=== PATIENT | male | born 1980 | race Caucasian/White ===

== ENCOUNTER 2016-11-08 18:55 | Emergency (ER) | payer OTHER ==
--- NOTE | 2016-11-08 19:45 | ED CLINICAL REPORT ---
Clinical Report - Physicians/Mid Levels [facility] [address] [place] [address] 11/08/2016 18:56 Patient: ANNY GORDON Time Seen: 19:07; initial patient contact, initial documentation, patient care assumed. Arrived- By private vehicle. Historian- patient. HISTORY OF PRESENT ILLNESS Chief Complaint: Injury to the left hand. The injury happened just prior to arrival. The patient sustained a laceration from a knife. Occurred at home. Patient is experiencing mild pain. Patient denies injury to the head. No other injury. REVIEW OF SYSTEMS The patient sustained a laceration. No swelling, tingling, numbness, weakness or foreign body. All systems otherwise negative, except as recorded above. PAST HISTORY See nurses notes. PROBLEMS: no known problems. ADDITIONAL SURGERIES: Appendectomy. --19:06 Page-Elva Ochoa R.N. The patient's dominant hand is the right. Tetanus immunization status is unknown. SOCIAL HISTORY Light tobacco smoker. Regular alcohol use; consumes two beers a day. Under the influence in [place]. No drug use. No recent travel. Is a local resident. He lives with spouse. ADDITIONAL NOTES The nursing notes have been reviewed with agreement regarding the chief complaint, HPI, ROS, PMH and patient medications and allergies. PHYSICAL EXAM Vital Signs: 11/08/2016 19:04 BP: 127/77. HR: 74. RR: 15. O2 saturation: 100%. Temp: 98.6 F. Pain level now: 10. Have been reviewed as normal and appear to be correct. Appearance: Alert. Oriented X3. No acute distress. Head: Head atraumatic. Eyes: Pupils equal, round and reactive to light. Eyes normal inspection. Respiratory: No respiratory distress. Skin: Skin warm and dry. Skin intact. Extremities: Hand injury present. Left hand: mild tenderness and subcutaneous 1.5 cm laceration. SEE LACERATION PROCEDURE NOTE #1. Neurovascular intact distally. (localized to webspace between digits 1&2). No erythema, swelling, abrasion, ecchymosis or puncture wound. No foreign body or deformity. No wrist injury. Hand and wrist exam otherwise negative. Extremities otherwise negative. Neuro, Vascular and Tendons: Vascular status intact. Sensation intact. Motor intact. Tendon function intact. Neuro: Oriented X 3. No motor deficit. No sensory deficit. Note: isolated injury to hand. PROGRESS AND PROCEDURES Laceration Repair: Location: left hand. Length: 1.5cm. Complexity: simple (local anesthesia used and sutured). Wound depth/shape- curved, irregular and flap-like and involving fascia. Wound is clean. No contamination, foreign body or contused tissue present. No tissue loss. Distal neuro/vascular/tendon status normal. Tendon not examined. No tendon deficit or laceration or tendon injury. Local anesthesia provided using 1% lidocaine (2 mL). Prepped with Betadine. Wound explored, cleansed, irrigated and examined to the base in bloodless field with normal saline. Wound not debrided. No foreign material removed. Closure of skin: 4-0 nylon (3 sutures). Skin adhesive used. Post-procedure: he is stable and there are no complications. Bleeding is controlled and neuro-vascular status is intact distal to the wound. Dressing applied. (per nursing staff, see other notes). Tetanus immunization given. Estimated blood loss: 3 mL. Patient and spouse counseled in person regarding the patient's stable condition and diagnosis. Differential Diagnosis: Other possible considerations: hand lac, fb, tendon injury. Above considerations are based on history and physical exam. Differential diagnosis was discussed with patient and patient's spouse. Disposition: Discharged home in good and improved condition (19:45). Condition: good and stable. CLINICAL IMPRESSION Single deep laceration to the left hand.Treatment of laceration not delayed. No infection, foreign body present or left fingernail injury. INSTRUCTIONS Protect wound and keep wound area clean. Soak in warm soapy water twice daily. Apply bacitracin twice daily. Sutures should be removed in ten days. Warnings: TETANUS: You were given a tetanus shot during your visit. Make a note for future reference. GENERAL WARNINGS: Return or contact your physician immediately if your condition worsens or changes unexpectedly, if not improving as expected, or if other problems arise. Specifically return if problem worsens. Follow-up: Follow up with your doctor in about three days as needed and for wound check. Call for an appointment. Summary of care provided to patient and family. Understanding of the discharge instructions verbalized by patient and family. (Electronically signed by Jessica Gill A.R.N.P. 11/08/2016 20:54)
--- NOTE | 2016-11-08 19:45 | ED NURSING NOTES ---
Clinical Report - Nurses [facility] [address] [place] [address] [place] [address] 11/08/2016 18:56 Patient: ANNY GORDON TRIAGE Triage time 19:Nov 08 2016. Acuity: LEVEL 4. Chief Complaint: INJURY TO LEFT HAND. INJURY TO THE RIGHT HAND. Alert. No acute distress. SEPSIS SCREEN: Sepsis Screen. Negative (no infection suspected/documented). ARIELLA COMA SCORE: [place] Coma Scale: 15- eyes open spontaneously (4); best verbal response- oriented x 4 (5); best motor response- obeys commands (6). --19:08 Elva Lux R.N. 19:04 11/08/16. BP: 127/77. HR: 74. RR: 15. O2 saturation: 100%. Temp: 98.6 F. Pain level now: 05/30. --19:08 Elva Lux R.N. Weight: 101.6 kg stated. Height/Length: 73 inches Per Patient. BMI: 29.6. --19:05 Elva Lux R.N. Medications None. --19:05 Elva Lux R.N. Medication/allergy information source: the patient. --19:08 Elva Lux R.N. Allergies None. --19:05 Elva Lux R.N. History Arrived by private vehicle. Historian: patient and family. Accompanied by family. This occurred just prior to arrival. He sustained a laceration from a knife (pt slicing an avacodo, knife slipped and now with lac to left hand, bleeding controlled). No neck pain, weakness or numbness. Treatment HIGH LIFT MULE OPERATOR: None. PAST MEDICAL HX: Tetanus status: unknown. Immunizations: status is unknown. SOCIAL HX: Light tobacco smoker- less than 1/2 a pack per day. Alcohol use; consumes two beers a day. Patient smells of ETOH in the emergency department. No drug use. No infectious disease exposure. ABUSE ASSESSMENT: No report of abuse. SELF HARM ASSESSMENT: A self harm assessment was performed. The patient answered "no" to the question "Do you have thoughts of harming or killing yourself?". FALL RISK ASSESSMENT: Fall risk assessment completed. No fall risk identified. NUTRITIONAL RISK ASSESSMENT: The nutritional risk assessment revealed no deficiencies. FUNCTIONAL ASSESSMENT: Functional assessment: no impairments noted. LEARNING NEEDS ASSESSMENT: The learning needs assessment revealed no barriers. SKIN INTEGRITY ASSESSMENT: Skin integrity risk assessment completed. No skin integrity risk identified. --19:08 Elva Lux R.N. PROBLEMS: no known problems. ADDITIONAL SURGERIES: Appendectomy. --19:06 Elva Lux R.N. Interventions ID band on patient. To treatment room. --19:08 Elva Lux R.N. PHYSICAL ASSESSMENT Ambulatory to room. Patient gowned. GENERAL / NEURO / PSYCH: Oriented X 4. Alert. Appears in no acute distress. EXTREMITIES: Capillary refill is less than 2 seconds in the extremities. Extremity pulses are within normal limits. Extremities exhibit normal ROM. Neuro-vascular status intact to the extremity. Right hand: (lac to base of thumb). SKIN: Skin is warm and dry. --19:09 Elva Lux R.N. NURSING PROGRESS NOTES Reassurance given. Patient identifiers checked. Call light placed in reach. Side rails up. Bed placed in lowest position. Brakes of bed on. --19:09 Elva Lux R.N. ( JEWELRY MODEL MAKER at bedside). --19:10 Elva Lux R.N. 19:16 11/08/2016 TDAP IM 0.5 mL given. (Lot#: [id number], expiration date: 09/28/2018, Rice Drier: sanofi pasteur). Given in the right deltoid. Allergies verified and confirmed 5 rights. Vaccine information statement provided to the patient. --19:26 Elva Lux R.N. WOUND REPAIR: Wound repair performed by JEWELRY MODEL MAKER. The wound is located on the left hand (left hand/palm). The wound is flap-like. Preparation: suture tray set-up. Procedure: wound repaired with sutures. Post-procedure: he was stable, no complications, bleeding controlled, neuro-vascular status intact distal to wound, dressing applied and wound care instructions given. Applied dressing consisting of telfa pad, following the application of antibiotic ointment. Secured with kerlix. --19:36 Elva Lux R.N. DISPOSITION / DISCHARGE No learning barriers present. Discharge instructions provided and reviewed with the patient. Patient verbalized understanding. Written instructions provided in Urdu. The patient was discharged by the nurse practitioner. He was discharged home and accompanied by spouse. He left the Emergency Department ambulatory and via private vehicle. Spouse driving. ( pt instructed on s/sx of infection , wound upon dispo c/d/i, f/u provided). --20:00 Elva Lux R.N. 19:57 11/08/16. BP: 121/68. HR: 69. RR: 15. O2 saturation: 100%. Temp: deferred. Pain level now: 0/10. --20:00 Elva Lux R.N. Condition at departure: improved. --20:00 Elva Lux R.N. Locked/Released at 11/08/2016 20:52 by Elva Lux R.N.
--- NOTE | 2016-11-08 19:45 | ED ORDER SUMMARY ---
..... Patient: ANNY GORDON OrderSheet [facility] VisitID: [id number] [address] [place] [address] 36y, M Registration Date/Time: 11/08/2016 ORDER SHEET Weight: 101.6 kg (stated) Allergies: None GENERAL ORDERS: Suture Set-up: (19:11 11/08/2016 Linda Collins.NAndie verbal order read back to HBivens A.R.N.P.) (19:20 CRYSTALeiler ER Tech1) Dress Wounds (19:12 11/08/2016 Linda Collins.NAndie verbal order read back to HBivens A.R.N.P.) (19:36 rAmando R.N.) MEDICATION ORDERS: Tdap IM 0.5 mL (NOW) (19:11 11/08/2016 Linda Collins.NAndie verbal order read back to HBivens A.R.N.P.) (19:26 Armando R.N.) IV FLUIDS: ORDER SHEET NOTES: [Electronically signed by Elva Lux R.N. (20:52 11/08/2016)] [Electronically signed by Jessica GillR.N.PAndie (20:54 11/08/2016)] [Electronically locked/signed by Elva Lux R.N. (20:52 11/08/2016)]
--- NOTE | 2016-11-08 19:45 | ED NURSING NOTES ---
Clinical Report - Nurses [facility] [address] [address] 11/08/2016 18:56 Patient: ANNY GORDON TRIAGE Triage time 19:Nov 08 2016. Acuity: LEVEL 4. Chief Complaint: INJURY TO LEFT HAND. INJURY TO THE RIGHT HAND. Alert. No acute distress. SEPSIS SCREEN: Sepsis Screen. Negative (no infection suspected/documented). ARIELLA COMA SCORE: [place] Coma Scale: 15- eyes open spontaneously (4); best verbal response- oriented x 4 (5); best motor response- obeys commands (6). --19:08 Elva Lux R.N. 19:04 11/08/16. BP: 127/77. HR: 74. RR: 15. O2 saturation: 100%. Temp: 98.6 F. Pain level now: 05/30. --19:08 Elva Lux R.N. Weight: 101.6 kg stated. Height/Length: 73 inches Per Patient. BMI: 29.6. --19:05 Elva Lux R.N. Medications None. --19:05 Elva Lux R.N. Medication/allergy information source: the patient. --19:08 Elva Lux R.N. Allergies None. --19:05 Elva Lux R.N. History Arrived by private vehicle. Historian: patient and family. Accompanied by family. This occurred just prior to arrival. He sustained a laceration from a knife (pt slicing an avacodo, knife slipped and now with lac to left hand, bleeding controlled). No neck pain, weakness or numbness. Treatment SERVICES ENGINEER: None. PAST MEDICAL HX: Tetanus status: unknown. Immunizations: status is unknown. SOCIAL HX: Light tobacco smoker- less than 1/2 a pack per day. Alcohol use; consumes two beers a day. Patient smells of ETOH in the emergency department. No drug use. No infectious disease exposure. ABUSE ASSESSMENT: No report of abuse. SELF HARM ASSESSMENT: A self harm assessment was performed. The patient answered "no" to the question "Do you have thoughts of harming or killing yourself?". FALL RISK ASSESSMENT: Fall risk assessment completed. No fall risk identified. NUTRITIONAL RISK ASSESSMENT: The nutritional risk assessment revealed no deficiencies. FUNCTIONAL ASSESSMENT: Functional assessment: no impairments noted. LEARNING NEEDS ASSESSMENT: The learning needs assessment revealed no barriers. SKIN INTEGRITY ASSESSMENT: Skin integrity risk assessment completed. No skin integrity risk identified. --19:08 Elva Lux R.N. PROBLEMS: no known problems. ADDITIONAL SURGERIES: Appendectomy. --19:06 Elva Lux R.N. Interventions ID band on patient. To treatment room. --19:08 Elva Lux R.N. PHYSICAL ASSESSMENT Ambulatory to room. Patient gowned. GENERAL / NEURO / PSYCH: Oriented X 4. Alert. Appears in no acute distress. EXTREMITIES: Capillary refill is less than 2 seconds in the extremities. Extremity pulses are within normal limits. Extremities exhibit normal ROM. Neuro-vascular status intact to the extremity. Right hand: (lac to base of thumb). SKIN: Skin is warm and dry. --19:09 Elva Lux R.N. NURSING PROGRESS NOTES Reassurance given. Patient identifiers checked. Call light placed in reach. Side rails up. Bed placed in lowest position. Brakes of bed on. --19:09 Elva Lux R.N. ( ALTERATION INSPECTOR at bedside). --19:10 Elva Lux R.N. 19:16 11/08/2016 TDAP IM 0.5 mL given. (Lot#: [id number], expiration date: 09/28/2018, Experimental Flight Test Mechanic: sanofi pasteur). Given in the right deltoid. Allergies verified and confirmed 5 rights. Vaccine information statement provided to the patient. --19:26 Elva Lux R.N. WOUND REPAIR: Wound repair performed by ALTERATION INSPECTOR. The wound is located on the left hand (left hand/palm). The wound is flap-like. Preparation: suture tray set-up. Procedure: wound repaired with sutures. Post-procedure: he was stable, no complications, bleeding controlled, neuro-vascular status intact distal to wound, dressing applied and wound care instructions given. Applied dressing consisting of telfa pad, following the application of antibiotic ointment. Secured with kerlix. --19:36 Elva Lux R.N. DISPOSITION / DISCHARGE No learning barriers present. Discharge instructions provided and reviewed with the patient. Patient verbalized understanding. Written instructions provided in [place]. The patient was discharged by the nurse practitioner. He was discharged home and accompanied by spouse. He left the Emergency Department ambulatory and via private vehicle. Spouse driving. ( pt instructed on s/sx of infection , wound upon dispo c/d/i, f/u provided). --20:00 Elva Lux R.N. 19:57 11/08/16. BP: 121/68. HR: 69. RR: 15. O2 saturation: 100%. Temp: deferred. Pain level now: 0/10. --20:00 Elva Lux R.N. Condition at departure: improved. --20:00 Elva Lux R.N. Locked/Released at 11/08/2016 20:52 by Elva Lux R.N.
--- NOTE | 2016-11-08 19:45 | ED ORDER SUMMARY ---
..... Patient: ANNY GORDON OrderSheet [facility] VisitID: [id number] [address] [place] [address] 36y, M Registration Date/Time: 11/08/2016 ORDER SHEET Weight: 101.6 kg (stated) Allergies: None GENERAL ORDERS: Suture Set-up: (19:11 11/08/2016 Linda Collins.NAndie verbal order read back to HBivens A.R.N.P.) (19:20 CRYSTALeiler ER Tech1) Dress Wounds (19:12 11/08/2016 Linda Collins.NAndie verbal order read back to HBivens A.R.N.P.) (19:36 Armando R.N.) MEDICATION ORDERS: Tdap IM 0.5 mL (NOW) (19:11 11/08/2016 Linda Collins.NAndie verbal order read back to HBivens A.R.N.P.) (19:26 Armando R.N.) IV FLUIDS: ORDER SHEET NOTES: [Electronically signed by Elva Lux R.N. (20:52 11/08/2016)] [Electronically signed by Jessica GillR.N.PAndie (20:54 11/08/2016)] [Electronically locked/signed by Elva Lux R.N. (20:52 11/08/2016)]
--- NOTE | 2016-11-08 20:54 | ED DISCHARGE INSTRUCTIONS ---
Patient: ANNY GORDON General Instructions [facility] VisitID: [id number] [place] [address] 36y, M Registration Date/Time: 11/08/2016 Single deep laceration to the left hand.Treatment of laceration not delayed. No infection, foreign body present or left fingernail injury. INSTRUCTIONS Protect wound and keep wound area clean. Soak in warm soapy water twice daily. Apply bacitracin twice daily. Sutures should be removed in ten days. Warnings: TETANUS: You were given a tetanus shot during your visit. Make a note for future reference. GENERAL WARNINGS: Return or contact your physician immediately if your condition worsens or changes unexpectedly, if not improving as expected, or if other problems arise. Specifically return if problem worsens. Follow-up: Follow up with your doctor in about three days as needed and for wound check. Call for an appointment. Summary of care provided to patient and family. Understanding of the discharge instructions verbalized by patient and family. ADDITIONAL INFORMATION Laceration (All Closures) Alaceration is a cut through the skin. This will usually require stitches (sutures) or isha if it is deep. Minor cuts may be treated with a surgical tape closure orskin glue. Home care The following guidelines will help you care for your laceration at home: Extremity, face, or trunk wounds Keep the wound clean and dry. If a bandage was applied and it becomes wet or dirty, replace it. Otherwise, leave it in place for the first 24 hours. If stitches or isha were used, clean the wound daily. After removing the bandage, wash the area with soap and water. Use a wet cotton swab to loosen and remove any blood or crust that forms. The doctor may prescribe an antibiotic cream or ointment to prevent infection. Do not stop taking this medication until you have finished the prescribed course or the doctor tells you to stop. The doctor may also prescribe medications for pain. Follow the doctors instructions for taking these medications. You may remove the bandage to shower as usual after the first 24 hours, but do not soak the area in water (no swimming) until the stitches or isha are removed. If surgical tape was used, keep the area clean and dry. If it becomes wet, blot it dry with a towel. If skin glue was used, do not scratch, rub, or pick at the adhesive film. Do not place tape directly over the film. Do not apply liquid, ointment, or creams to the wound while the film is in place. Do not clean the wound with peroxide and do not apply ointments. Avoid activities that cause heavy sweating until the film has fallen off. Protect the wound from prolonged exposure to sunlight or tanning lamps. You may shower as usual but do not soak the wound in water (no baths or swimming). The film will fall off by itself in 510 days. Scalp wounds During the first two days, you may carefully rinse your hair in the shower to remove blood, glass or dirt particles. After two days, you may shower and shampoo your hair normally. Do not soak your scalp in the tub or go swimming until the stitches or isha have been removed. Talk with your doctor before applying any antibiotic ointment to the wound. Mouth wounds Eat soft foods to reduce pain. If the cut is inside of your mouth, clean by rinsing after each meal and at bedtime with a mixture of equal parts water and hydrogen peroxide (do not swallow!). Or, you can use a cotton swab to directly apply hydrogen peroxide onto the cut. Mouth wounds can be painful when eating. You may use an ycob-cyq-ogrvooy local numbing solution for pain relief. If this is not available, you may use any numbing solution for teething babies. You may apply this directly to the sores with a cotton-tip swab or with your finger. Follow-up care Follow up with your health care provider. Most skin wounds heal within ten days. Mouth and facial wounds heal within five days. However, even with proper treatment, a wound infection may sometimes occur. Therefore, you should check the wound daily for signs of infection listed below. Stitches should be removed from the face within five days; stitches and isha should be removed from other parts of the body within 714 days. If dissolving stitches were used in the mouth, these will fall out or dissolve without the need for removal. If tape closures were used, remove them yourself if they have not fallen off after 7 days. Ifskin glue was used, the film will fall off by itself in 510 days. When to seek medical care Get prompt medical attention if any of these occur: Bleeding not controlled by direct pressure Signs of infection, including increasing pain in the wound, increasing wound redness or swelling, or pus coming from the wound Fever of 100.4F (38C) or higher, or as directed by your health care provider Stitches or isha come apart or fall out or surgical tape falls off before 7 days Wound edges re-open Laceration, Extremity (Sutures, Isha, Or Tape) A laceration is a cut through the skin. This will usually require stitches (sutures) or isha if it is deep. Minor cuts may be treated with surgical tape closures. Home care The following guidelines will help you care for your laceration at home: Keep the wound clean and dry. If a bandage was applied and it becomes wet or dirty, replace it. Otherwise, leave it in place for the first 24 hours, then change it once a day or as directed. If stitches or isha were used, clean the wound daily: After removing the bandage, wash the area with soap and water. Use a wet cotton swab to loosen and remove any blood or crust that forms. After cleaning, keep the wound clean and dry. Talk with your doctor before applying any antibiotic ointment to the wound. Reapply the bandage. You may remove the bandage to shower as usual after the first 24 hours, but do not soak the area in water (no swimming) until the stitches or isha are removed. If surgical tape closures were used, keep the area clean and dry. If it becomes wet, blot it dry with a towel. The doctor may prescribe an antibiotic cream or ointment to prevent infection. Do not stop taking this medication until you have finished the prescribed course or the doctor tells you to stop. The doctor may also prescribe medications for pain. Follow the doctors instructions for taking these medications. If you have chronic liver or kidney disease or ever had a stomach ulcer or GI bleeding, talk with your doctor before using these medicines. Follow-up care Follow up with your health care provider. Most skin wounds heal within ten days. However, an infection may sometimes occur despite proper treatment. Therefore, check the wound daily for the signs of infection listed below. Stitches and isha should be removed within 714 days. If surgical tape closures were used, you may remove them after 10 days, if they have not fallen off by then. Notify your doctor if you notice persistent numbness or weakness in the injured extremity. (Note:A radiologist will review any X-rays that were taken. We will notify you of any new findings that may affect your care.) When to seek medical care Get prompt medical attention if any of these occur: Increasing pain in the wound Redness, swelling, or pus coming from the wound Fever of 100.4F (38C) or higher, or as directed by your health care provider If stitches or isha come apart or fall out before your next appointment If the surgical tape closures fall off within seven days, or the wound edges re-open Bleeding not controlled by direct pressure Diphtheria Toxoid Adsorbed, Pertussis Vaccine, Acellular (Adsorbed), Tetanus Toxoid, Adsorbed Suspension for injection What is this medicine? DIPHTHERIA and TETANUS TOXOIDS; PERTUSSIS VACCINE (dif THEER ee uh and TET n us TOK soids; per TUS iss vak SEEN) is used to prevent diphtheria, tetanus, and pertussis infections. How should I use this medicine? This vaccine is for injection into a muscle. It is given by a health home care physical therapist. A copy of Vaccine Information Statements will be given before each vaccination. Read this sheet carefully each time. The sheet may change frequently. Talk to your heating and refrigeration inspector regarding the use of this vaccine in children. While the DTP vaccine may be given to children ages 6 weeks to 7 years and the Tdap vaccine may be given to children at least 10 years old, precautions do apply. What side effects may I notice from receiving this medicine? Side effects that you should report to your doctor or health home care physical therapist as soon as possible: allergic reactions like skin rash, itching or hives, swelling of the face, lips, or tongue breathing problems fever of 103 degrees F or more flu-like symptoms inconsolable crying infection pain, tingling, numbness in the hands or feet seizures swelling of arm or leg that was injected unusually weak or tired Side effects that usually do not require immediate medical attention (report these side effects to your doctor or health home care physical therapist if they continue or are bothersome): fussy, irritable loss of appetite fever of 102 degrees F or less pain, tenderness, redness, swelling, or a 'knot' at site where injected vomiting What may interact with this medicine? immune globulin medicines that suppress your immune function like adalimumab, anakinra, infliximab medicines to treat cancer medicines that treat or prevent blood clots like warfarin, enoxaparin, and dalteparin steroid medicines like prednisone or cortisone What if I miss a dose? It is important not to miss your dose. Call your doctor or health home care physical therapist if you are unable to keep an appointment. Where should I keep my medicine? This drug is given in a hospital or clinic and will not be stored at home. What should I tell my health care provider before I take this medicine? They need to know if you have any of these conditions: blood disorders like hemophilia fever or infection immune system problems neurologic disease seizures an unusual or allergic reaction to vaccines, thimerosal, latex, other medicines, foods, dyes, or preservatives or trying to get breast-feeding What should I watch for while using this medicine? See your health care provider for all shots of this vaccine as directed. To have protection from infection, you must have 3 shots of this vaccine plus boosters as needed. Tell your doctor right away if you have any serious or unusual side effects after getting this vaccine. You have been given the following additional information: Laceration, All Laceration, Extrem (Suture, Staple, Or Tape) Diphtheria Toxoid Adsorbed, Pertussis Vaccine, Acellular (Adsorbed), Tetanus Toxoid, Adsorbed Suspension for injection (Electronically signed by Jessica Gill A.R.N.P. 11/08/2016 20:54)
--- NOTE | 2016-11-08 20:54 | ED MAR SUMMARY ---
..... Medication Administration Record [facility] [address] [place] [address] Patient: ANNY GORDON Visit ID: [id number] 36y, M Weight: 101.6 kg Height/Length: 73 in BMI: 29.6 ALLERGIES: None Given 19:16 11/08/2016 Elva Lux R.N. Medication Administered: TDAP [IM], Dose: 0.5 mL IM. Medication Ordered: Tdap IM 0.5 mL (NOW).
--- NOTE | 2016-11-08 20:54 | ED MED RECONCILIATION SUMMARY ---
Patient: ANNY GORDON Medication Reconciliation Report [facility] VisitID: [id number] [address] [place] [address] 36y, M Registration Date/Time: 11/08/2016 Weight: 101.6 kg Height/Length: 73 in. BMI: 29.6 ALLERGIES: None The patient's Home Medications are listed below: NONE. The source(s) of the original Home Medication information: patient The following Medications were given to the patient in the Emergency Department: TDAP [IM] IM 0.5 mL, administered: 11/08/2016 7:16:00 PM The following Medications were prescribed to the patient: None.
--- NOTE | 2016-11-08 20:54 | ED MAR SUMMARY ---
..... Medication Administration Record [facility] [address] [place] [address] Patient: ANNY GORDON Visit ID: [id number] 36y, M Weight: 101.6 kg Height/Length: 73 in BMI: 29.6 ALLERGIES: None Given 19:16 11/08/2016 Elva Lux R.N. Medication Administered: TDAP [IM], Dose: 0.5 mL IM. Medication Ordered: Tdap IM 0.5 mL (NOW).
--- NOTE | 2016-11-08 20:54 | ED MED RECONCILIATION SUMMARY ---
Patient: ANNY GORDON Medication Reconciliation Report [facility] VisitID: [id number] [address] [place] [address] 36y, M Registration Date/Time: 11/08/2016 Weight: 101.6 kg Height/Length: 73 in. BMI: 29.6 ALLERGIES: None The patient's Home Medications are listed below: NONE. The source(s) of the original Home Medication information: patient The following Medications were given to the patient in the Emergency Department: TDAP [IM] IM 0.5 mL, administered: 11/08/2016 7:16:00 PM The following Medications were prescribed to the patient: None.
== END 2016-11-08 19:54 | disposition home or self-care (01) ==
LOC: ED SRH 18:55
DX: S61.412A Laceration without foreign body of left hand, initial encounter (principal); W26.0XXA Contact with knife, initial encounter; Y93.G1 Activity, food preparation and clean up; Y92.009 Unspecified place in unspecified non-institutional (private) residence as the place of occurrence of the external cause; Y99.9 Unspecified external cause status; F17.210 Nicotine dependence, cigarettes, uncomplicated